=== PATIENT | male | born 1980 | race Two or more races ===

== ENCOUNTER 2018-07-21 02:33 | Emergency (ER) | payer OTHER ==
[2018-07-21] MEDS ORDERED: NS 0.9% 1000 ML* 1,000 ML IV ONE (04:08)
[2018-07-21] MEDS ORDERED: Morphine INJ* 2 MG/ML 1 ML SYRINGE (TWO MG - NEW SYRINGE VERSION) IV ONE (04:08)
[2018-07-21] MEDS ORDERED: Metoclopramide IV* 5 MG/ML 2 ML VIAL IV SLOW PU ONE (04:08)
[2018-07-21 04:28] LABS: ABS Basophils 0.1 10^3/ul (0-0.2); ABS Eosinophils 0.2 10^3/ul (0-0.6); ABS Lymphocytes 1.7 10^3/ul (1.0-4.8); ABS Monocytes 0.8 10^3/ul (0-0.8); ABS Neutrophils 8.5 10^3/ul (1.5-7.7); ABS Nucleated RBC 0 10^3/ul; Eosinophil % 2.2 % (0-6); Hematocrit 39 % (42-52); Hemoglobin 13.6 g/dl (14.0-18.0); Lymphocyte % 15.1 % (25-47); Mean Corpuscular HGB Conc 35 g/dl (31-36); Mean Corpuscular Hemoglobin 31 pg (27-31); Mean Corpuscular Volume 89 fL (80-94); Mean Platelet Volume 8.2 um3 (7.4-10.4); Nucleated Red Blood Cells % 0; Platelet Count 197 10^3/ul (150-450); Red Blood Count 4.41 10^6/ul (4.00-5.40); Red Cell Distribution Width 13 % (10.5-15); White Blood Count 11.4 10^3/ul (3.5-10.8)
[2018-07-21 04:43] LABS: INR 0.93 (0.77-1.02)
[2018-07-21 04:44] LABS: EGFR Non-African American 86.8 (>60)
--- NOTE | 2018-07-21 04:46 | ED ---
Abdominal Pain/Male - HPI Summary HPI Summary: The pt is a 38 y.o male presenting to the [facility] with a chief complaint of hematochezia. The pt states the onset of the symptoms was 183 on 07/20/18. The pt also reports abd pain on the left side. No surgical hx was reported. The blood was described as bright red. The diarrheal stool most recently seen was at 0030 on 07/21/18 as per triage note. The pain is reported to be 5/10 in severity. Symptoms aggravated by nothing. Symptoms alleviated by nothing. - History of Current Complaint Chief Complaint: EDGIBleed Stated Complaint: ABD PAIN/ GENERAL ILLNESS Time Seen by Provider: 07/21/18 03:47 Hx Obtained From: Patient Onset/Duration: Gradual Onset, Lasting Hours - 182907/20/18 Timing: Constant Severity Initially: Moderate Severity Currently: Moderate Pain Intensity: 5 Pain Scale Used: 0-10 Numeric Location: Other - Left side Aggravating Factor(s): Nothing Alleviating Factor(s): Nothing Associated Signs And Symptoms: Positive: Blood in Stool, Diarrhea - Allergies/Home Medications Allergies/Adverse Reactions: Allergies Allergy/AdvReac Type Severity Reaction Status Date / Time No Known Allergies Allergy Verified 07/21/18 02:41 Home Medications: Home Medications NK [No Home Medications Reported] 07/21/18 [History Confirmed 07/21/18] PMH/Surg Hx/FS Hx/Imm Hx Sensory History: Denies: Hx Deafness Opthamlomology History: Denies: Hx Legally Blind Infectious Disease History: No Infectious Disease History: Denies: Traveled Outside the [place] in Last 30 Days - Family History Known Family History: Positive: None Family History: Reviewed and noncontributory - Social History Occupation: Employed Full-time Alcohol Use: None Substance Use Type: Reports: None Smoking Status (MU): Never Smoked Tobacco Review of Systems Constitutional: Negative Eyes: Negative ENT: Negative Cardiovascular: Negative Respiratory: Negative Positive: Abdominal Pain - left sided, Diarrhea - hematochezia Genitourinary: Negative Musculoskeletal: Negative Skin: Negative Neurological: Negative Psychological: Normal All Other Systems Reviewed And Are Negative: Yes Physical Exam - Summary Physical Exam Summary: VITAL SIGNS: Reviewed. GENERAL: Patient is a well-developed and nourished (MALE) who is lying comfortable in the stretcher. Patient is not in any acute respiratory distress. HEAD AND FACE: No signs of trauma. No ecchymosis, hematomas or skull depressions. No sinus tenderness. EYES: PERRLA, EOMI x 2, No injected conjunctiva, no nystagmus. EARS: Hearing grossly intact. Ear canals and tympanic membranes are within normal limits. MOUTH: Oropharynx within normal limits. NECK: Supple, trachea is midline, no adenopathy, no JVD, no carotid bruit, no c- spine tenderness, neck with full ROM. CHEST: Symmetric, no tenderness at palpation LUNGS: Clear to auscultation bilaterally. No wheezing or crackles. CVS: Regular rate and rhythm, S1 and S2 present, no murmurs or gallops appreciated. ABDOMEN: Diffuse abd tenderness Hypoactive bowel sounds Rectal exam showed no hemorrhoids and no blood EXTREMITIES: FROM in all major joints, no edema, no cyanosis or clubbing. NEURO: Alert and oriented x 3. No acute neurological deficits. Speech is normal and follows commands. SKIN: Dry and warm Triage Information Reviewed: Yes Vital Signs On Initial Exam: Initial Vitals Temp Pulse Resp BP Pulse Ox 97.8 F 80 16 129/82 98 07/21/18 02:35 07/21/18 02:35 07/21/18 02:35 07/21/18 02:35 07/21/18 02:35 Vital Signs Reviewed: Yes Diagnostics - Vital Signs Vital Signs Temp Pulse Resp BP Pulse Ox 07/21/18 04:23 18 07/21/18 02:35 97.8 F 80 16 129/82 98 - Laboratory Lab Results: Lab Results 07/21/18 07/21/18 Range/Units 04:17 04:17 WBC 11.4 H (3.5-10.8) 10^3/ul RBC 4.41 (4.00-5.40) 10^6/ul Hgb 13.6 L (14.0-18.0) g/dl Hct 39 L (42-52) % MCV 89 (80-94) fL MCH 31 (27-31) pg MCHC 35 (31-36) g/dl RDW 13 (10.5-15) % Plt Count 197 (150-450) 10^3/ul MPV 8.2 (7.4-10.4) um3 Neut % (Auto) 74.6 (38-83) % Lymph % (Auto) 15.1 L (25-47) % [place] % (Auto) 6.9 (0-7) % Eos % (Auto) 2.2 (0-6) % Baso % (Auto) 1.2 (0-2) % Absolute Neuts (auto) 8.5 H (1.5-7.7) 10^3/ul Absolute Lymphs (auto) 1.7 (1.0-4.8) 10^3/ul Absolute Monos (auto) 0.8 (0-0.8) 10^3/ul Absolute Eos (auto) 0.2 (0-0.6) 10^3/ul Absolute Basos (auto) 0.1 (0-0.2) 10^3/ul Absolute Nucleated RBC 0 10^3/ul Nucleated RBC % 0 Lactic Acid 0.5 (0.5-2.0) mmol/L Result Diagrams: 07/21/18 04:17 07/21/18 04:17 Lab Statement: Any lab studies that have been ordered have been reviewed, and results considered in the medical decision making process. Abdominal Pain Fem Course/Dx - Course Course Of Treatment: The pt is a 38 y.o male who is presenting to the [facility] with a cheif complaint of hematochezia as well as abd pain. The pt received a CT A/P in the [facility]. The pt is currently pending a CT A/P and will be signed out to Dr. Mahoney pending disposition as well. The dx will be abd pain. - Diagnoses Provider Diagnoses: Abdominal pain Discharge - Sign-Out/Discharge Documenting (check all that apply): Patient Departure, Sign-Out Patient Signing out patient TO: Jerry Mahoney - Pending disposition and CT A/P - Discharge Plan Condition: Stable Referrals: Destinee Jackson MD [Primary Care Provider] - - Attestation Statements Document Initiated by Scribe: Yes Documenting Scribe: Stefano Slater Provider For Whom Scribe is Documenting (Include Credential): Dr. Shannan Marshall Scribe Attestation: Stefano Polanco, scribed for Dr. Shannan Marshall on 07/21/18 at 0655.
[2018-07-21] MEDS ORDERED: Morphine INJ* 4 MG/ML 1 ML SYRINGE (NEW SYRINGE VERSION) IV ONE (05:00)
[2018-07-21] MEDS ORDERED: Iohexol 300* (CONTRAST) 10 ML SDV IV ONE (06:07)
[2018-07-21 07:20] LABS: Urine Appearance Clear; Urine Blood Negative (Negative); Urine Color Straw; Urine Ketones Negative (Negative); Urine Protein Negative (Negative); Urine Specific Gravity 1.008 (1.010-1.030); Urine Urobilinogen Negative (Negative)
--- NOTE | 2018-07-21 07:39 | RAD ---
EXAM: CT Abdomen and Pelvis With Intravenous Contrast CLINICAL HISTORY: 38 years old, male; Pain; Abdominal pain; Generalized; Additional info: Abd pain TECHNIQUE: Axial computed tomography images of the abdomen and pelvis with intravenous contrast. All CT scans at this facility use at least one of these dose optimization techniques: automated exposure control; mA and/or kV adjustment per patient size (includes targeted exams where dose is matched to clinical indication); or iterative reconstruction. Coronal and sagittal reformatted images were created and reviewed. CONTRAST: 79 mL of OMNI administered intravenously. COMPARISON: No relevant prior studies available. FINDINGS: Lung bases: Unremarkable. No mass. No consolidation. ABDOMEN: Liver: Unremarkable. No mass. Gallbladder and bile ducts: Unremarkable. No calcified stones. No ductal dilation. Pancreas: Unremarkable. No mass. No ductal dilation. Spleen: Unremarkable. No splenomegaly. Adrenals: Unremarkable. No mass. Kidneys and ureters: Unremarkable. No solid mass. No hydronephrosis. Stomach and bowel: A segment of the distal descending colon is collapsed with thickening of the wall. No bowel wall pneumatosis. No mesenteric inflammation. No associated intra-abdominal mass PELVIS: Appendix: No findings to suggest acute appendicitis. The appendix is not clearly identified. Bladder: Unremarkable. No mass. Reproductive: Unremarkable as visualized. ABDOMEN and PELVIS: Intraperitoneal space: Unremarkable. No free air. No significant fluid collection. Bones/joints: No acute fracture. No dislocation. Soft tissues: Unremarkable. Vasculature: Unremarkable. No abdominal aortic aneurysm. Lymph nodes: Unremarkable. No enlarged lymph nodes. IMPRESSION: Focal area of distal descending colonic wall thickening. This may represent a focal colitis. No significant mesenteric inflammation. Suggest further correlation and followup to exclude the possibility of an underlying neoplasm.
--- NOTE | 2018-07-21 07:43 | ED ---
Progress - Progress Note Progress Note: SIGN-OUT FROM DR. MARSHALL AT SHIFT CHANGE PENDING IMAGING AND DISPO. 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 AT 0834: ED provider at bedside Discussing CT results and plan to D/C pt to f/u with GI. - Results/Orders Results/Orders: ABD/PEL CT as read by radiologist: IMPRESSION: Focal area of distal descending colonic wall thickening. This may represent a focal colitis. No significant mesenteric inflammation. Suggest further correlation and followup to exclude the possibility of an underlying neoplasm. ED provider has reviewed this report. Course/Dx - Course Course Of Treatment: Mr. Diehl was signed out to me at change of shift from Dr. Marshall. He has had about a day and a half of left lower quadrant pain and some bloody diarrhea. He was stable here in the emergency department with good labs and awaiting a CT of his abdomen. The CT returned it revealed a a fairly focal left lower quadrant colitis. This could represent neoplasm but is more likely infectious and I will treat with antibiotics. I contacted Dr. Bergman for close follow-up. - Diagnoses Provider Diagnoses: Colitis - Provider Notifications Discussed Care Of Patient With: Leobardo Bergman - GI Time Discussed With Above Provider: 08:32 Instructed by Provider To: Have Pt Call For Appt. Discharge - Sign-Out/Discharge Documenting (check all that apply): Patient Departure - DC, Receiving Sign-Out Receiving patient FROM: Rashad Marshall - pending imaging - Discharge Plan Condition: Stable Disposition: HOME Prescriptions: Ciprofloxacin TAB* [Cipro Tab*] 500 mg PO BID #20 tab metroNIDAZOLE [Flagyl 500 MG TAB] 500 mg PO TID #30 tab Patient Education Materials: Ciprofloxacin (By mouth), Metronidazole (By mouth) , Colitis (ED) Referrals: Leobardo Bergman MD [Medical Doctor] - As Soon As Possible Destinee Jackson MD [Primary Care Provider] - 3 Days Additional Instructions: Follow up with your primary care provider in 2-[address] Bergman, GI as soon as possible to schedule an appt. Please return to the ED if you experience new or worsening symptoms. - Billing Disposition and Condition Condition: STABLE Disposition: Home - Attestation Statements Document Initiated by Scribe: Yes Documenting Scribe: Meeta Hager Provider For Whom Moreibe is Documenting (Include Credential): Dr. Jerry Mahoney MD Scribe Attestation: I, Meeta Hager, scribed for Dr. Jerry Mahoney MD on 07/21/18 at 0942. Scribe Documentation Reviewed: Yes Provider Attestation: The documentation as recorded by the moreibeMeeta accurately reflects the service I personally performed and the decisions made by me, Dr. Jerry Mahoney MD
[2018-07-21 08:49] VITALS: BP 139/91
== END 2018-07-21 08:49 | disposition home or self-care (01) ==
LOC: ED 02:33
DX: R10.9 Unspecified abdominal pain (principal)
CPT/HCPCS: 36415; 74177; 80053; 81003; 82150; 83605; 83690; 83735; 85025; 85610; 85730; 86140; 96361; 96374; 96375; 99283; J2270; J2765; Q9967